=== PATIENT | female | born 1955 | race Caucasian/White ===

== ENCOUNTER 2021-05-01 13:32 | Emergency (ER) | payer BC, SELFPAY ==
--- NOTE | 2021-05-01 14:07 | HMH.EDUTC ---
[facility] [place] Clinical Impression: Right hip pain Closed right ischial fracture Qualifiers: Encounter type: subsequent encounter Fracture morphology: avulsion Fracture alignment: nondisplaced Fracture healing: with routine healing Qualified Code(s): S32.614D - Nondisplaced avulsion fracture of right ischium, subsequent encounter for fracture with routine healing Disposition: Home, Self-Care Condition on Discharge: Good Instructions: DI for Hip Pain Additional Instructions: Rest the extremity don't bear weitht on it until you are told different by the orthopedic doctor. Take ibuprofen for pain. I sent in a prescription to your pharmacy. Follow up with the orthopedic doctor that you already have an appointment with coming up. Follow up with your regular doctor. GO TO THE ER FOR ANY WORSENING SYMPTOMS Prescriptions: methocarbamoL [Methocarbamol] 750 mg PO BIDP PRN #20 tab PRN Reason: Muscle Spasm Transmission Status: Received by ASHLEY REBOLLAR [id number] Referrals: Marti Luna MD [Primary Care Provider] - Time of Disposition: 14:58 Medical Decision Making - Medical Records Medical records reviewed: No: I reviewed the patient's medical records. - Brayden Inquiry Pt receiving controlled substance: No Vital Signs: 05/01/21 14:30 05/01/21 15:01 Temperature 98.1 F 98.1 F Temperature Source Oral Pulse Rate 79 Pulse Rate [Left] 79 Respiratory Rate 18 18 Blood Pressure 121/93 H Blood Pressure [Right Arm] 121/93 H Blood Pressure Mean [Right Arm] 102 02 Sat by Pulse Oximetry 95 - Lab Data Lab results reviewed: Yes: I reviewed the patient's lab results. Medical Decision Narrative: She refused transfer to the ER for further evaluation and possible ct scan of her hip. She request a muscle relaxer to be prescribed so she may be able to get comfortable enough to rest with the ibuprofen that she has been taking already. She is going to keep her appointment with orthopedics on this coming Sunday. [facility] [place] - General Stated complaint: rt hip pain AO fall 04/26 Time Seen by Provider: 05/01/21 14:07 - History of Present Illness Provider Complaint: She is here to discuss her hip pain. She fell on 04/26 and went to her pcp then. An x-ray was ordered by her pcp. After the x-ray was done, she states that she recieved a call from the nurse and was told that she has broke a part of her hip and that she has an appt on 05/03 with orthopedics at the [facility] in [place]. She came here today because she states that she did not get good instructions from her doctor's office and she wanted someone else to look at the x-ray. She has a disk with her hip x-ray on it. She has been staying off her feet and resting. She denies additional injury other than some left knee pain that she states is getting better. She states that her knee was x-rayed also but she does not have the disk with that one on it with her. - Related Data Previous Rx's Medication Instructions Recorded methocarbamoL [Methocarbamol] 750 mg PO BIDP PRN #20 tab 05/01/21 Allergies Allergy/AdvReac Type Severity Reaction Status Date / Time tramadol Allergy Verified 05/01/21 14:34 DARVOCET Allergy Intermediate FREAK OUT Uncoded 03/20/17 15:19 MORPHINE Allergy Intermediate I-HIVES Uncoded 03/20/17 15:19 [facility] History - Hepatitis A Screen Attestation statement:: This patient has been screened for Hepatitis A risk factors. I have reviewed the patient's past medical history: Yes ROS Obtained: Yes All systems reviewed & no additional complaints - Constitutional Constitutional: Reports system reviewed and no additional complaints, except as docu - Eyes Eyes: Reports system reviewed and no additional complaints, except as docu - ENT Ears, Nose, Mouth, and Throat: Denies dizziness, Denies otalgia, Denies sore throat, Denies vertigo/dizziness - Cardiovascular Cardiovascular: Denies chest pain - Respiratory Respiratory
[2021-05-01 14:30] VITALS: BP 121/93; PULSE 79; RESP 18; TEMP 36.7; O2SAT 95; BMI 22.0
[2021-05-01 15:01] VITALS: BP 121/93; PULSE 79; RESP 18; TEMP 36.7
== END 2021-05-01 15:10 | disposition home or self-care (01) ==
PROVIDERS: Emergency Provider Nurse Practitioner Family; PCP Family Medicine
DX: S32.601A Unspecified fracture of right ischium, initial encounter for closed fracture (principal); W01.0XXA Fall on same level from slipping, tripping and stumbling without subsequent striking against object, initial encounter; Y92.019 Unspecified place in single-family (private) house as the place of occurrence of the external cause
CPT/HCPCS: 99202; G0463

== ENCOUNTER 2021-07-03 13:47 | Emergency (ER) | payer BC, SELFPAY ==
[2021-07-03 13:48] VITALS: BP 115/79; PULSE 65; RESP 20; TEMP 36.4; O2SAT 100; BMI 22.4
--- NOTE | 2021-07-03 14:16 | CT_ITS ---
PROCEDURE INFORMATION: Exam: CT Abdomen And Pelvis With Contrast Exam date and time: 07/03/2021 2:52 PM Age: 65 years old Clinical indication: Abdominal pain; Generalized; Additional info: Rlq/ hip pain TECHNIQUE: Imaging protocol: Computed tomography of the abdomen and pelvis with contrast. Radiation optimization: All CT scans at this facility use at least one of these dose optimization techniques: automated exposure control; mA and/or kV adjustment per patient size (includes targeted exams where dose is matched to clinical indication); or iterative reconstruction. Contrast material: ISOVUE; Contrast volume: 75 ml; Contrast route: IV; COMPARISON: No relevant prior studies available. FINDINGS: Liver: Normal. No mass. Gallbladder and bile ducts: Previous cholecystectomy. Pancreas: Normal. No ductal dilation. Spleen: Normal. No splenomegaly. Adrenal glands: Normal. No mass. Kidneys and ureters: Normal. No hydronephrosis. Stomach and bowel: Fecal loading within the proximal colon. No evidence of bowel obstruction. Small bowel anastomosis in the left lower quadrant. Appendix: No evidence of appendicitis. Intraperitoneal space: Unremarkable. No free air. No significant fluid collection. Vasculature: Unremarkable. No abdominal aortic aneurysm. Lymph nodes: Unremarkable. No enlarged lymph nodes. Urinary bladder: Unremarkable as visualized. Reproductive: Unremarkable as visualized. Bones/joints: Unremarkable. No acute fracture. Soft tissues: Unremarkable. IMPRESSION: Fecal loading within the proximal colon. No evidence of bowel obstruction.
--- NOTE | 2021-07-03 14:16 | PC.NURSE ---
ED MD at
[2021-07-03 14:45] LABS: Chloride 106 mmol/L (98-107); Potassium 4.1 mmoL/L (3.5-5.1); Sodium 139 mmol/L (136-145)
--- NOTE | 2021-07-03 14:46 | HMH.EDGENADL ---
ED Disposition Clinical Impression: Right hip pain Constipation Qualifiers: Constipation type: unspecified constipation type Qualified Code(s): K59.00 - Constipation, unspecified Disposition: Home, Self-Care Condition on Discharge: Good Instructions: DI for Constipation, DI for Hip Pain Additional Instructions: You have been evaluated for right lower quadrant abdominal pain, right hip pain. 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 Please try a bowel cleanout with MiraLAX. Take 3 capfuls today and 1 cap daily after that. Take for and or naproxen for hip pain. Follow-up with your primary care doctor. Return to the emergency department at once for any new or worsening symptoms, nausea, vomiting, inability have bowel movements or other concerns. Prescriptions: polyethylene glycoL 3350 [Miralax 17gm Packet] 17 gm PO DAILYP PRN #30 packet PRN Reason: Constipation Transmission Status: [id number] Referrals: Provider,Referral, [Referring] - Time of Disposition: 15:37 - Critical Care Critical Care Time: No Attestation: On 07/03/21, the high probability of a clinically significant, sudden or life threatening deterioration of the following system(s) required my full and direct attention, intervention and personal management. The time I documented below is in addition to time spent performing reported procedures but includes the following listed in this critical care notation. Medical Decision Making - Medical Records Medical records reviewed: Yes: I reviewed the patient's medical records. - Brayden Inquiry Pt receiving controlled substance: No Vital Signs: 07/03/21 13:48 07/03/21 15:47 Temperature 97.6 F Temperature Source Oral Pulse Rate 71 Pulse Rate [Left Radial] 65 Respiratory Rate 20 Blood Pressure 142/79 H Blood Pressure [Right Arm] 115/79 Blood Pressure Mean 107 Blood Pressure Mean [Right Arm] 91 Blood Pressure Source [Right Arm] Automatic Cuff Blood Pressure Position [Right Arm] Sitting 02 Sat by Pulse Oximetry 100 97 Oxygen Delivery Method Room Air - Lab Data Lab Results 07/03/21 14:33: WBC 7.4, RBC 5.13, Hgb 14.8, Hct 46.6, MCV 90.9, MCH 28.8, MCHC 31.7 L, RDW 16.2, Plt Count 414, MPV 7.4, Neut % (Auto) 59.1, Lymph % (Auto) 31.3, Real % (Auto) 4.6, Eos % (Auto) 3.5, Baso % (Auto) 1.4, Neut # (Auto) 4.4, Lymph # (Auto) 2.3, Real # (Auto) 0.4, Eos # (Auto) 0.3, Baso # (Auto) 0.1 07/03/21 14:33: Sodium 139, Potassium 4.1, Chloride 106, Carbon Dioxide 27, Anion Gap 10.1, BUN 15, Creatinine 0.90, Estimated Creat Clear 47, Estimated GFR 63, Est GFR ( Amer) 77, Glucose 83, Calcium 8.5, Total Bilirubin 0.4, AST 29, ALT 21, Alkaline Phosphatase 81, Total Protein 6.6, Albumin 3.9, Globulin 2.7, Albumin/Globulin Ratio 1.4, Lipase 96 07/03/21 15:43: Lactate 0.8 07/03/21 15:47: Urine Color Yellow, Urine Appearance Clear, Urine pH 6.5, Ur Specific Mcfarland <= 1.005, Urine Protein Negative, Urine Glucose (UA) Negative, Urine Ketones Negative, Urine Blood Negative, Urine Nitrate Negative, Urine Bilirubin Negative, Urine Urobilinogen 0.2, Ur Leukocyte Esterase Negative Result diagrams: 07/03/21 14:33 07/03/21 14:33 Orders (Tests/Meds): ED MEDICATIONS Discontinued Medications Generic Name Dose Route Start Last Admin Trade Name Leandroq PRN Reason Stop Dose Admin Iopamidol 75 ml 07/03/21 15:02 07/03/21 15:03 Iopamidol-370 (76%);100ml Bottle IV 07/03/21 15:03 75 ml ONCE ONE Administration Ketorolac Tromethamine 15 mg 07/03/21 14:17 07/03/21 14:22 Ketorolac 30mg/Ml Vial IV 07/03/21 14:18 15 mg ONCE ONE Administration Sodium Chloride 10 ml 07/03/21 15:02 07/03/21 15:03 Sodium Chloride 0.9% 10ml Syr (Rad Only) IV 07/03/21 15:03 10 ml ONCE ONE Administration ORDERS Category Date Time Status Urinalysis and Microscopic Stat Lab 07/03/21 15:47 Results - CT Data CT Scan: Abdomen Time Receive
[2021-07-03 14:47] LABS: Alanine Aminotransferase 21 U/L (12-78); Alkaline Phosphatase 81 U/L (38-126); Aspartate Amino Transferase 29 U/L (14-36); Bilirubin,Total 0.4 mg/dl (0.2-1.3); Blood Urea Nitrogen 15 mg/dl (7-17); Creatinine Clearance Estimated 47 mL/min (50-200); Estimated Glomerular Filt Rate 63 ml/min (>60); GFR (African American) 77 ML/MIN (>60)
[2021-07-03 14:48] LABS: Albumin Level 3.9 g/dl (3.5-5.0); Albumin/Globulin Ratio 1.4 (1.1-1.8); Anion Gap 10.1 mEq/L (5-15); Calcium 8.5 mg/dl (8.4-10.2); Carbon Dioxide 27 mmol/L (22.0-30.0); Globulin 2.7 g/dL (1.3-3.2); Glucose 83 mg/dl (74-100); Lipase 96 U/L (23-300); Total Protein,Serum 6.6 g/dl (6.3-8.2)
--- NOTE | 2021-07-03 14:50 | PC.NURSE ---
patient to CT with linen grader by santo
[2021-07-03 14:56] LABS: Basophils # 0.1 K/mm3 (0-0.2); Basophils % 1.4 % (0.1-2.0); Eosinophils # 0.3 K/mm3 (0.0-0.4); Eosinophils % 3.5 % (0.1-12.0); Hematocrit 46.6 % (37.0-47.0); Hemoglobin 14.8 g/dL (12.2-16.2); Lymphocytes # 2.3 K/mm3 (0.7-4.5); Lymphocytes % 31.3 % (10-50); Mean Corpuscular HGB Conc 31.7 g/dL (31.8-35.4); Mean Corpuscular Hemoglobin 28.8 pg (27.0-31.2); Mean Corpuscular Volume 90.9 fl (81-99); Mean Platelet Volume 7.4 fl (7.4-10.4); Monocytes # 0.4 K/mm3 (0.1-1.0); Monocytes % 4.6 % (1.7-9.3); Neutrophils # 4.4 K/mm3 (1.8-7.8); Neutrophils % 59.1 % (37.0-80.0); Platelet Count 414 K/mm3 (142-424); Red Blood Count 5.13 M/mm3 (4.20-5.40); Red Cell Distribution Width 16.2 % (11.5-17.5); White Blood Count 7.4 K/mm3 (4.8-10.8)
--- NOTE | 2021-07-03 15:01 | PC.NURSE ---
patient back from CT with radiographer angiogram by santo
--- NOTE | 2021-07-03 15:45 | PC.NURSE ---
patient ambulatory to restroom and back to room without any complications
[2021-07-03 15:47] VITALS: BP 142/79; PULSE 71; PULSE 72; O2SAT 97
--- NOTE | 2021-07-03 15:49 | PC.NURSE ---
UA sent to lab
[2021-07-03 15:52] LABS: Microscopic, Urine URINE MICROSCOPIC (MICROSCOPIC)
[2021-07-03 16:00] VITALS: BP 117/82; PULSE 71; O2SAT 97
[2021-07-03 16:09] LABS: Lactic Acid 0.8 mmol/L (0.7-2.1)
[2021-07-03 16:16] LABS: Appearance,Urine CLEAR (Clear); Bilirubin,Urine Negative (Negative); Blood, Urine Negative (Negative); Color,Urine YELLOW (Yellow); Glucose,Urine (UA) Negative (Negative); Ketones,Urine Negative (Negative); Leukocyte Esterase,Urine Negative (Negative); Nitrate,Urine Negative (Negative); PH,Urine 6.5 (5.0-8.5); Protein,Urine Negative (Negative); Specific Gravity, Urine <= 1.005 (1.005-1.030); Urobilinogen,Urine 0.2 EU/dl (0.2)
[2021-07-03 16:30] VITALS: BP 125/76; PULSE 72; O2SAT 98
--- NOTE | 2021-07-03 16:30 | PC.NURSE ---
Called lab to check on UA results, Antoinette reports it is about to be released
[2021-07-03 16:54] LABS: Bacteria,Urine Trace /lpf; Squamous Epithelial Cell,Urine Occasional #/hpf (0-5); Yeast,Urine 1+ /lpf
[2021-07-03 17:30] VITALS: BP 125/74; PULSE 81; RESP 18; TEMP 36.4; O2SAT 99
== END 2021-07-03 17:30 | disposition home or self-care (01) ==
PROVIDERS: Emergency Provider Emergency Medicine; PCP Family Medicine
DX: M25.551 Pain in right hip (principal); R10.31 Right lower quadrant pain; K59.00 Constipation, unspecified; R53.1 Weakness; Z88.6 Allergy status to analgesic agent; Z88.5 Allergy status to narcotic agent; Z79.891 Long term (current) use of opiate analgesic
CPT/HCPCS: 74177; 80053; 81001; 83605; 83690; 85025; 96374; 99285; Q9967

== ENCOUNTER 2021-07-10 13:43 | Emergency (ER) | payer BC, SELFPAY ==
[2021-07-10 13:44] VITALS: BP 132/78; PULSE 72; RESP 16; TEMP 36.6; O2SAT 96; BMI 22.4
--- NOTE | 2021-07-10 13:50 | HMH.EDABDPAI ---
ED Disposition Clinical Impression: Constipation Qualifiers: Constipation type: unspecified constipation type Qualified Code(s): K59.00 - Constipation, unspecified Disposition: Home, Self-Care Condition on Discharge: Fair Instructions: DI for Acute Abdominal Pain Additional Instructions: Please follow-up with your primary care doctor in about 3 to 4 days if you do not improve. Return to the emergency department if you feel worse in any way. I recommend you take [id number] citrate tomorrow to see whether this will help your constipation. I have also prescribed you some Bentyl for abdominal spasms. Prescriptions: Dicyclomine HCl [Bentyl 10mg capsule] 10 mg PO QID #20 cap Transmission Status: Pending to [place] [id number] Referrals: Provider,Referral, [Primary Care Provider] - - Critical Care Critical Care Time: No Attestation: On , the high probability of a clinically significant, sudden or life threatening deterioration of the following system(s) required my full and direct attention, intervention and personal management. The time I documented below is in addition to time spent performing reported procedures but includes the following listed in this critical care notation. Medical Decision Making - Medical Records Medical records reviewed: Yes: I reviewed the patient's medical records. - Brayden Inquiry Pt receiving controlled substance: No Vital Signs: 07/10/21 13:44 07/10/21 13:52 07/10/21 14:08 Temperature 97.8 F Temperature Source Oral Pulse Rate 56 L 67 Pulse Rate [Right] 72 Respiratory Rate 16 Blood Pressure 132/78 122/84 Blood Pressure [Right Arm] 132/78 Blood Pressure Mean 87 96 Blood Pressure Mean [Right Arm] 96 Blood Pressure Source [Right Arm] Automatic Cuff Blood Pressure Position [Right Arm] Sitting 02 Sat by Pulse Oximetry 96 96 96 Oxygen Delivery Method Room Air Orders (Tests/Meds): ED MEDICATIONS Discontinued Medications Generic Name Dose Route Start Last Admin Trade Name Freq PRN Reason Stop Dose Admin Dicyclomine HCl 20 mg 07/10/21 13:51 07/10/21 14:01 Dicyclomine 20 Mg/2ml Vial IM 07/10/21 13:52 20 mg ONCE ONE Administration ORDERS Category Date Time Status Abdomen XR flat & upright [XR acute abdomen series] Exams 07/10/21 13:51 Taken Stat - Radiology Data #1 Image(s): Abdomen Image Reviewed: Yes I reviewed the patient's radiology image Preliminary Findings: Normal/NAD (My interpretation of the patient's radiographic images is that there is no evidence of bowel obstruction. There is some mild constipation. No acute disease.) Medical Decision Narrative: Patient symptoms improved after Bentyl. Her radiograph does not show any evidence of obstruction. Her abdomen exam is nontender and there is no evidence for acute abdomen. The patient can be safely discharged home. Abdominal Pain HPI - General Chief Complaint: Abdominal Pain Stated Complaint: painful BM Time Seen by Provider: 07/10/21 13:50 Mode of Arrival: Ambulatory Source of Information: Patient - History of Present Illness HPI narrative: The patient complains of left lower quadrant bloating with discomfort on defecation. She states that she has had the symptoms in the past and was diagnosed with constipation. She states that she also has a history of small bowel obstruction. She feels nauseous but has not vomited. Her symptoms have been ongoing for approximately 1 week. - Related Data Previous Rx's Medication Instructions Recorded methocarbamoL [Methocarbamol] 750 mg PO BIDP PRN #20 tab 05/01/21 polyethylene glycoL 3350 [Miralax 17 gm PO DAILYP PRN #30 packet 07/03/21 17gm Packet] Dicyclomine HCl [Bentyl 10mg 10 mg PO QID #20 cap 07/10/21 capsule] Allergies Allergy/AdvReac Type Severity Reaction Status Date / Time tramadol Allergy Verified 05/01/21 14:34 DARVOCET Allergy Intermediate FREAK OUT Uncod
--- NOTE | 2021-07-10 13:51 | XR_ITS ---
PROCEDURE INFORMATION: Exam: XR Complete Acute Abdomen Series Including Chest Exam date and time: 07/10/2021 1:50 PM Age: 65 years old Clinical indication: Bloating and constipation; Patient HX: Frequent constipation and several bowel blockages per patient. TECHNIQUE: Imaging protocol: XR complete acute abdomen series, including 2 or more views of the abdomen and a single view chest. COMPARISON: CT ABDOMEN PELVIS W CON 07/03/2021 2:52 PM FINDINGS: Lungs: Normal. No consolidation. Pleural spaces: Normal. No pleural effusions. No pneumothorax. Heart/Mediastinum: Normal. No cardiomegaly. Gastrointestinal tract: Retained fecal material in the descending and rectosigmoid colon. Gas demonstrated in the stomach. No evidence of obstruction. Intraperitoneal space: Surgical clips partially visualized in the left lower quadrant. Paragraphs scoliosis of the lumbar spine convexity to the right. Organs: Surgical clips in the right upper quadrant consistent with previous cholecystectomy. Bones/joints: See Intraperitoneal space finding. Soft tissues: Normal. IMPRESSION: Nonspecific bowel gas pattern.
[2021-07-10 13:52] VITALS: BP 132/78; PULSE 56; O2SAT 96
--- NOTE | 2021-07-10 14:00 | PC.NURSE ---
Pt to RAD
--- NOTE | 2021-07-10 14:05 | PC.NURSE ---
pt back from RAD
[2021-07-10 14:08] VITALS: BP 122/84; PULSE 67; O2SAT 96
[2021-07-10 15:02] VITALS: BP 122/78; PULSE 67; RESP 16; TEMP 37.1; O2SAT 98
== END 2021-07-10 15:05 | disposition home or self-care (01) ==
PROVIDERS: Emergency Provider Emergency Medicine
DX: K59.00 Constipation, unspecified (principal); Z88.5 Allergy status to narcotic agent; Z88.6 Allergy status to analgesic agent
CPT/HCPCS: 74021; 96372; 99284